=== PATIENT | male | born 1995 | race Caucasian/White ===

== ENCOUNTER 2017-09-30 18:04 | Emergency (ER) | payer OTHER ==
[2017-09-30] MEDS ORDERED: ACETAMINOPHEN 325 MG TABLET PO STA (18:53)
--- NOTE | 2017-09-30 19:13 | ED Physician Documentation ---
PD HPI URI - Stated complaint Stated Complaint: FLU SYMPTOMS - Chief complaint Chief Complaint: Fever - History obtained from History obtained from: Patient - History of Present Illness Timing - onset: Other (Sick for 3 days with cough, sore throat, body aches skin congestion. He works at a [employer] as a cook.) Review of Systems Constitutional: reports: Fever, Chills, Myalgias, Fatigue, Sweats Nose: reports: Rhinorrhea / runny nose, Congestion Throat: reports: Sore throat PD PAST MEDICAL HISTORY - Past Surgical History Past Surgical History: Yes - Present Medications Home Medications: Ambulatory Orders Medication Instructions Recorded Confirmed No Known Home Medications [No 09/30/17 09/30/17 Known Home Medications] - Allergies Allergies/Adverse Reactions: Allergies Allergy/AdvReac Type Severity Reaction Status Date / Time No Known Drug Allergies Allergy Verified 10/01/14 17:37 - Social History Does the pt smoke?: No Smoking Status: Never smoker Does the pt drink ETOH?: No Does the pt have substance abuse?: Yes - Immunizations Immunizations are current?: Yes - POLST Patient has POLST: No PD ED PE NORMAL - Vitals Vital signs reviewed: Yes - General General: Alert and oriented X 3, No acute distress - HEENT HEENT: PERRL, EOMI, Ears normal, Moist mucous membranes, Pharynx benign - Neck Neck: Supple, no meningeal sign, No bony TTP - Cardiac Cardiac: RRR, No murmur - Respiratory Respiratory: Clear bilaterally - Abdomen Abdomen: Non tender - Derm Derm: No rash - Neuro Neuro: Alert and oriented X 3 Results - Vitals Vitals: Vital Signs - 24 hr 09/30/17 18:12 Temperature 39.1 C H Heart Rate 88 Respiratory 20 Rate Blood Pressure 125/71 O2 Saturation 99 Oxygen O2 Source Room air - Labs Labs: Laboratory Tests 09/30/17 18:15 Influenza A (Rapid) Negative Influenza B (Rapid) POSITIVE H Influenza Types A,B Ag + H PD MEDICAL DECISION MAKING - ED course ED course: He is not a candidate for antiviral treatments given the time course and otherwise healthy young man. Departure - Departure Disposition: 01 Home, Self Care Clinical Impression: Influenza Condition: Good Record reviewed to determine appropriate education?: Yes Instructions: ED Flu Comments: Ibuprofen as needed for aches and pains, Sudafed for congestion. He should be better in a few days, return if worse. Forms: Activity restrictions
[2017-09-30 19:17] VITALS: BP 117/65
== END 2017-09-30 19:19 | disposition home or self-care (01) ==
LOC: ED 18:04
DX: J11.1 Influenza due to unidentified influenza virus with other respiratory manifestations (principal)
CPT/HCPCS: 87275; 87276; 99282; 99283; A9270